=== PATIENT | female | born 1995 | race Caucasian/White ===

== ENCOUNTER 2017-03-27 13:14 | Emergency (ER) | payer SELFPAY ==
[~2017-03-27] VITALS: Ht 157.5 cm; Wt 52.3 kg
[2017-03-27] MEDS ORDERED: SODIUM CHLORIDE 0.9% 1,000ML IVBOLUS ONE (14:00)
[2017-03-27 14:23] LABS: ASPARTATE AMINO TRANSFERASE 14 U/L (15-37); BLOOD UREA NITROGEN 11 mg/dL (7-18)
[2017-03-27 16:35] VITALS: BP 118/63
== END 2017-03-27 16:38 | disposition home or self-care (01) ==
LOC: ED 16:32
DX: R10.31 Right lower quadrant pain (principal); F17.210 Nicotine dependence, cigarettes, uncomplicated; N83.209 Unspecified ovarian cyst, unspecified side
CPT/HCPCS: 36415; 74020; 80053; 81001; 84703; 85025; 87086; 99285; J7030